=== PATIENT | male | born 1985 | race Caucasian/White ===

== ENCOUNTER 2017-01-19 12:54 | Emergency (ER) | payer BC, OTHER ==
[~2017-01-19] VITALS: Ht 175.3 cm; Wt 63.5 kg
--- NOTE | ~2017-01-19 | CR63 ---
[facility] A Service of [facility] RADIOLOGY TEXT RESULTS PATIENT: SHANNON KEYS LOCATION: SED : 84 UNIT #: [id number] AGE: [address]: USAMA JOSÉ SEX: M ORDER DR: [id number] [place] [address] [id number] E MR#: [id number] Acc #: [id number] NAME: SHANNON KEYS : 1985 SEX: M STUDY DATE/TIME: 01/19/2017 13:50 UNIT: SED ROOM: STUDY DESCRIPTION: CR Chest 2 View Attending Physician: Usama José R.N. Ordering Physician: Usama José R.N. Primary Care Physician: No Primary Care Physician MEDICAL IMAGING REPORT This report is preliminary unless electronic signature is present. EXAM PA and lateral chest. INDICATIONS Cough, cold symptoms for 6 days. COMPARISON 03/21/2016 FINDINGS PA and lateral examination of the chest upright shows a good expansion of the parenchyma with a normal distribution of the pulmonary vascularity. There is no indication of congestion, effusion, infiltrate, tumor, or nodular density. The pleural reflections and diaphragmatic contours are normal. The cardiac silhouette and mediastinal anatomy is within normal limits. IMPRESSION Normal chest. Dictated by... Jose Joel M.D. THIS IS AN ELECTRONICALLY VERIFIED REPORT Jose Joel M.D. at 01/20/2017 9:50 AM MIKE/satinder TD: 01/19/2017 20:52 JOB #: [id number] [facility] A Service of [facility] RADIOLOGY TEXT RESULTS PATIENT: SHANNON KEYS LOCATION: SED : 84 UNIT #: [id number] AGE: [address]: USAMA JOSÉ SEX: M ORDER DR: MEDICAL IMAGING REPORT Page 1 of 1
== END 2017-01-19 16:18 | disposition home or self-care (01) ==
LOC: SED 12:54
DX: J32.0 Chronic maxillary sinusitis (principal); J30.2 Other seasonal allergic rhinitis; F17.210 Nicotine dependence, cigarettes, uncomplicated
CPT/HCPCS: 71020; 94640; 99285

== ENCOUNTER 2017-01-24 08:26 | Inpatient (IN) | payer BC, OTHER ==
[~2017-01-24] VITALS: Ht 175.3 cm; Wt 58.8 kg
--- NOTE | ~2017-01-24 | CR58 ---
[facility] A Service of [facility] & [facility] RADIOLOGY TEXT RESULTS PATIENT: RADHIKA KEYS LOCATION: [facility] 328-01 : [birth year] UNIT #: [id number] AGE: [address]: Jaren Cavanaugh MD SEX: M ORDER DR: [id number] [facility] [address] [facility]. [place], [place] [address] [id number] I MR#: [id number] Acc #: [id number] NAME: RADHIKA KEYS : 1985 SEX: M STUDY DATE/TIME: 01/25/2017 6:59 UNIT: [address] ROOM: [facility] STUDY DESCRIPTION: CR Cervical Spine 2 or 3 Views Attending Physician: Jaren Cavanaugh M.D. Ordering Physician: Physician Non-Staff Primary Care Physician: Primary Care Physician No MEDICAL IMAGING REPORT This report is preliminary unless electronic signature is present EXAM Cervical series 01/25/2017 INDICATIONS Pain and stiffness in the neck for 2 days. No known injury. Unable to move the neck. TECHNIQUE 4 views of the cervical spine were performed. We have no comparison studies FINDINGS Dens and lateral masses intact. No acute fracture or malalignment. Soft tissues unremarkable. Mild degenerative disc disease at C5-6. IMPRESSION 1. Mild degenerative disc disease otherwise negative Dictated by... Jitendra Slade M.D. THIS IS AN ELECTRONICALLY VERIFIED REPORT Jitendra Slade M.D. at 01/25/2017 3:50 PM Liborio TD: 01/25/2017 14:54 JOB #: [id number] MEDICAL IMAGING REPORT Page 1 of 1 COPY
--- NOTE | ~2017-01-24 | HP ---
Unit #: [id number] #: [id number] Patient: RADHIKA KEYS [id number] [address] [place], [place] [address] [id number] I MR#: [id number] NAME: RADHIKA KEYS ROOM: 328 Age: 31 Sex: M Admission Date: 01/24/2017 : 1985 Attending Physician: Farhana Ramirez M.D. Primary Care Physician: No Primary Care Physician HISTORY AND PHYSICAL CHIEF COMPLAINT Headache and neck pain. HISTORY OF PRESENT ILLNESS The patient is a 31-year-old male with a recently diagnosis of the URI last Wednesday, presented to the [facility] complaining of the headache, associated with diarrhea. The patient stated patient went to the bathroom yesterday and was sitting on the commode and started having headache. The patient had a headache workup in the [facility] ER and was found to have a colitis with ascending colitis and dilated upper (1) and brought to the emergency room with sepsis and ascending colitis and probable appendicitis. The patient complains of the pain at the right lower quadrant. It is sharp in nature, 6 out of 10 in severity and nonradiating. The patient states that patient has a steady Augmentin for the last few days and admitted to cover for diarrhea. Denies any fever. Denies any chills. Denies any nausea or vomiting. PAST MEDICAL HISTORY None. PAST SURGICAL HISTORY Denies. ALLERGIES No known drug allergies. HOME MEDICATIONS Patient is on Augmentin. SOCIAL HISTORY Denies smoking, alcohol and illicit drug abuse. FAMILY HISTORY Reviewed and none. REVIEW OF SYMPTOMS Positive for the headache and dizziness. Positive for the diarrhea. Positive for the abdominal pain. PHYSICAL EXAMINATION VITAL SIGNS: His temperature is 97.5, pulse is 105, respiratory rate 16, blood pressure 113/67. At the time of eval the patient was hypotensive, D5/50 received 3 L of the fluid bolus. HEENT: Head atraumatic and normocephalic. Pupils equal, round, reactive Unit #: [id number] #: [id number] Patient: RADHIKA KEYS to light and accommodation. Extraocular movements are intact. NECK: Supple and complained of the pain and the neck movements, associated with the headache. LUNGS: Decreased air entry at the basis. HEART: Regular rate and rhythm, ABDOMEN: Soft, positive bowel sounds, point tenderness of the right lower quadrant. EXTREMITIES: No cyanosis and no clubbing. NEUROLOGIC: Alert, awake and oriented. No gross focal, motor deficits. DIAGNOSTIC STUDIES LABORATORY DATA: Lactic acid 0.9. UA shows leukocyte esterase 2+ blood, 25-50 urine WBC, bacteruria 1+. Urine drug screen is positive for a TCA. WBC 27.9, hematocrit and hemoglobin is 15, hematocrit 44.5, platelets 349, neutrophils 93% and bandemia 29%. Sodium 136, potassium 4.5, chloride 105, bicarb 25, glucose 130, BUN 25, creatinine 1.5, AST 22, ALT 19, alk phos 97, lactic acid is 1.6. IMAGING STUDIES: Chest x-ray shows normal chest. CT of the abdomen and pelvis showed ascending colitis with a prominent appendix, cannot rule out appendicitis. ASSESSMENT 1. Ascending colitis. 2. Sepsis. 3. UTI. PLAN Plan to admit the patient to inpatient telemetry. Continue with IV fluids and p.o. (2) and LSA consulted and seen by Dr. Miramontes at the time of dictation and continued with the IV antibiotics with Zosyn and continued with the pain control and check the stool culture and C. diff, PCI, and pain control. I will repeat the labs again in the morning and further recommendations will follow. Dictated by Venancio Corbin/yvonne TD: 01/25/2017 05:59 JOB #: [id number] HISTORY AND PHYSICAL Page 1 of 1 X FARHANA RAMIREZ MD X HISTORY AND PHYSICAL
--- NOTE | ~2017-01-24 | CO ---
Unit #: [id number] #: [id number] Patient: RADHIKA KEYS [id number] [address] [place], [place] [address] [id number] I MR#: [id number] NAME: RADHIKA KEYS ROOM: 328 Age: 31 Sex: M Admission Date: 01/24/2017 : 1985 Attending Physician: Jaren Cavanaugh M.D. Primary Care Physician: Primary Care Physician No Consultation Date: 01/25/2017 CONSULTATION REPORT ADDITIONAL ATTENDING PHYSICIAN Jaren Cavanaugh M.D. PRIMARY CARE PHYSICIAN Santiago Husain M.D. REASON FOR CONSULTATION Right-sided colitis. HISTORY OF PRESENT ILLNESS Mr. Keys is a 31-year-old white gentleman. The patient works as a employee relations manager in [employer], where he is extremely busy and stressed out because of extreme large amount of work. He lives with 4 children and his , who also works. He apparently presented with history of right lower quadrant abdominal pain and watery nonbloody diarrhea over the past couple of days. Before this about 10 days ago, he was given Augmentin for upper respiratory tract infection. The patient denies any history of hematochezia. He also felt dizzy and lightheaded and was having frequent cough. He also has pain in the neck and feels that it is muscular. PAST MEDICAL HISTORY No significant past medical and also no prior surgical history. The patient has remote history of drug abuse, polysubstance abuse, but he has not used any for the last 4 years. SOCIAL HISTORY He does smoke a pack of cigarette a day and does not drink alcohol or use of any drugs. In the remote past, he has abused drugs in the past. FAMILY HISTORY None of colon, pancreatic cancer, or liver disease. REVIEW OF SYSTEMS Detailed review of organ system does reveal some recent weight loss. No history of fever, chills, or rigors. No headache, seizures, or syncope. There is history of cough with minimal expectoration. No history of hemoptysis. No history of dysuria, hematuria, or pyuria. No history of focal seizures or extremity weakness. PHYSICAL EXAMINATION GENERAL: He is awake, alert, and oriented, and appears comfortable. He does seem to have dry hacking cough during examination. VITAL SIGNS: Stable with a temperature of 97.5, pulse is 91 per minute and regular, respiratory rate is 16, blood pressure is 114/78. He weighs Unit #: [id number] #: [id number] Patient: RADHIKA KEYS 130 pounds and his baseline weight has been about 139 to 140 pounds the past. HEENT: He has mild pallor. There being no icterus, lymphadenopathy, or peripheral edema. CARDIOVASCULAR: Normal heart sounds. No murmurs. LUNGS: Auscultation over the lungs reveals normal breath sounds. Good air entry. ABDOMEN: Soft. There is however localized tenderness over the right lower quadrant of the abdomen. There is no rigidity, rebound, or guarding. Liver and spleen not palpable. Bowel sounds normal. DIAGNOSTIC STUDIES LABORATORY RESULTS: Shows a white count of 27,000 yesterday and 14,000 today; hemoglobin is 11.9; platelet count is normal. Serum chemistry shows normal BUN and creatinine today and was 25 and 1.5 yesterday. His albumin is 4.4. LFTs normal. IMAGING STUDIES: CT scan of the abdomen shows right-sided colitis and thickening of the colon in that area and stool studies are negative for C diff toxin and for Salmonella and for Campylobacter. There are however positive fecal leukocytes and occult blood. CLINICAL IMPRESSION The patient most likely has infectious colitis. Overall, he is feeling much better on empiric treatment. It will be okay to discharge him home on antibiotic combination of Flagyl and Levaquin p.o. for 5 to 6 days. He will however require followup as an outpatient. Thank you very much for asking me to see this pleasant gentleman. I appreciate the consult. Dictated by... Venancio Chapman/ponce TD: 01/25/2017 19:13 JOB #: [id number] CC: Venancio Hoover M.D. Amjad Ali, M.D. CONSULTATION REPORT Page 1 of 1 X Sae Whitaker MD CONSULTATION REPORT
--- NOTE | ~2017-01-24 | CO ---
Unit #: [id number] #: [id number] Patient: RADHIKA KEYS [id number] [address] [place], [place] [address] [id number] I MR#: [id number] NAME: RADHIKA KEYS ROOM: 328 Age: 31 Sex: M Admission Date: 01/24/2017 : 1985 Attending Physician: Jaren Cavanaugh M.D. Primary Care Physician: Primary Care Physician No CONSULTATION REPORT HISTORY OF PRESENT ILLNESS Mr. Keys is a 31-year-old gentleman, who has no chronic medical history, but was started on Augmentin for an upper respiratory infection about 5 to 6 days ago. Over the last 3 to 4 days, he has developed copious watery diarrhea and over the last 24 hours, he developed right-sided abdominal pain and nausea. He denies any vomiting, fever, chills, or hematochezia. Because of the increasing pain and persistent diarrhea, he went to the emergency room at [facility] and there, a CT scan of the abdomen and pelvis revealed thickening and edema of the ascending and transverse colon with an 8 mm appendix that was fluid filled. This was consistent with probable colitis with secondary involvement of the appendix. The patient denies any prior personal history of gastrointestinal disease and he is unaware of a family history of inflammatory bowel disease. His mother is at the bedside. He is unaware of any history of gastrointestinal disease. He has never had any abdominal surgery or any prior episodes. 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 He has had drainage of an abscess of the right upper extremity and he has had right hand surgery. He has had several dental extractions. He has chronic back pain and seasonal allergies. He has had a history of kidney stones. ALLERGIES No allergies to medication. MEDICATIONS His chronic medications include Flexeril and Claritin as needed for allergies. Recently, he has been on Augmentin. FAMILY HISTORY Atherosclerotic coronary artery disease. SOCIAL HISTORY He does smoke cigarettes. He denies use of alcohol or any recreational drugs. He is not , but has 5 children. REVIEW OF SYSTEMS As above plus a productive cough with green sputum and he had a marked diffuse bilateral frontal headache when he went to the emergency room. PHYSICAL EXAMINATION GENERAL: He is awake, alert, oriented, cooperative and pleasant. Unit #: [id number] #: [id number] Patient: RADHIKA KEYS HEENT: No scleral icterus. No carotid bruits. CARDIAC: Regular rhythm without murmur. LUNGS: Clear with a few scattered rhonchi. ABDOMEN: Nondistended and scaphoid. On palpation, he guards throughout the epigastrium and throughout the right abdomen extending into the flank. There is no localized tenderness. EXTREMITIES: No clubbing, cyanosis, or edema. NEUROLOGIC: Grossly intact. No skin rashes or lesions. DIAGNOSTIC STUDIES LABORATORY RESULTS: Comprehensive metabolic panel was within normal limits except for BUN and creatinine of 25 and 1.5. His lactic acid is 0.9. Hemoglobin 15, white count 27,900, 93% segmented neutrophils. Urinalysis; 25 to 50 white cells, nitrite negative. IMAGING STUDIES: CT scan of the head was negative. CT scan of the chest was negative. CT of the abdomen and pelvis as discussed. ASSESSMENT AND PLAN The patient has the radiographic findings consistent with colitis of the ascending and transverse colon with a secondarily dilated appendix. It is quite possible he has develop clostridium difficile colitis from his Augmentin from an upper respiratory infection. At this time, we are going to hydrate the patient, get stool studies and start him on Flagyl in addition to the antibiotics he is already on. We will follow serial exams and labs. I have also asked for a sputum culture since he reports a productive cough. I have discussed this with the patient and family. He does not have history, exam was simple appendicitis with the diffuse inflammation of the colon and appendix. Appendectomy at this time is not warranted and we put him at risk for a stump leak. Dictated by... Venancio Rodriguez/ponce TD: 01/24/2017 19:50 JOB #: [id number] CONSULTATION REPORT Page 1 of 1 X Ever Miramontes MD CONSULTATION REPORT
--- NOTE | ~2017-01-24 | A ---
[facility] Nutrition Therapy DATE: 01/25/17 Patient: RADHIKA KEYS Physician: KWADWO Address: [address] [place] [address] DRIVE Room/Bed: [address] [place] [address], Zip: [place] [address] Admit Date: 01/24/17 Date of : [birth year] Height: 5 9 Weight: 130 59.4 NUTRITIONAL ASSESSMENT: REASON: Low BMI Admitting dx: Pt is a 31 y/o male admitted with dizziness/headache - found to have colitis, sepsis, URI, ?appendicitis PMH: Nothing noted. Anthropometrics: Ht:69" Adm wt:120# UBW:140# BMI:17.7 (admit) 14% loss in ~3 weeks (severe) Labs: Cl-:112 Ca++:8.1 Meds: Zofran, Phenergan, Zosyn, Florastor I/O & Bowel function: BM 01/25, diarrhea noted on 01/24 Skin Integrity: No skin issues noted. Diet: Full liquids Assessment: Chart reviewed, events noted. Pt was seen for a low BMI of 17.7. Regional Flatbed Truck Driver was able to speak to the pt and family at bedside. Pt reports his usual body weight to be ~140#, but that recent illness has caused him to drop ~20# in past 3 weeks (Severe) . He says that his usual appetite is good, but he is apprehensive about eating much now because of his acute stomach pains. Regional Flatbed Truck Driver encouraged the pt to eat small meals throughout the day and to try a supplement for extra kcals and protein. Pt agreed and reported no further questions at this time. RD will follow-up per protocol. Dx: Inadequate protein-energy intake r/t current clinical condition, colitis, appendicitis, URI AEB 20# (14%) weight loss in ~3 weeks (severe). Intervention: See RD recs below Monitoring, Evaluation and Goals: 1. Prevent further weight loss; encourage gradual weight gain towards a healthy BMI. 2. Intake and tolerance of nutrition supplement. 3. Promote regular BM's. Recommendations: 1. Please order Chocolate Ensure shakes TID to supplement poor PO intake and prevent [facility] Nutrition Therapy DATE: 01/25/17 Patient: RADHIKA KEYS Physician: KWADWO Address: [address] [place] [address] Glipho Room/Bed: [address] [place] [address], Zip: [place] [address] Admit Date: 01/24/17 Date of : [birth year] Height: 5 9 Weight: 130 59.4 further weight loss. 2. Once medically feasible, advance diet as tolerated to Regular + 6 small meals to better facilitate po intake 3. Weigh q 3 days for monitoring purposes. RD will follow Moderately compromised Respectfully, Tania Moore, Market Development Trainer Ash Ramsay, MS, RD, LD Food and Nutritional Services [facility] cc: client file
--- NOTE | ~2017-01-24 | CT2 ---
[facility] A Service of [facility] & [facility] RADIOLOGY TEXT RESULTS PATIENT: RADHIKA KEYS LOCATION: A 328-01 : [birth year] UNIT #: [id number] AGE: [address]: Jaren Cavanaugh MD SEX: M ORDER DR: [id number] [address] [address] [id number] I MR#: [id number] #: [id number] NAME: RADHIKA KEYS : 1985 SEX: M STUDY DATE/TIME: 01/24/2017 10:48 UNIT: SEDOF ROOM: [facility] STUDY DESCRIPTION: CT Abd and Pelv W Cont Attending Physician: Pina Ramierz M.D. Ordering Physician: Jose Funez M.D. Primary Care Physician: Primary Care Physician No MEDICAL IMAGING REPORT This report is preliminary unless electronic signature is present. EXAM CT of the abdomen and pelvis INDICATION Nausea, right lower quadrant pain starting today. The patient's CT of the chest will be dictated separately. TECHNIQUE Axial CT images were obtained from the dome of the diaphragm through the symphysis pubis following administration of oral and intravenous contrast material. This CT exam was performed with one or more of the following radiation dose reduction techniques: automatic exposure control, adjustment of mA and/or kV according to patient size, and iterative reconstruction. FINDINGS Stomach and proximal small bowel are within normal limits as are the spleen, adrenal glands, pancreas, liver and gallbladder. Kidneys appear unremarkable. Urinary bladder is unremarkable. Patient has some dystrophic calcifications within the prostate gland. There is no evidence of mechanical bowel obstruction. The appendix appears mildly prominent and is fluid-filled but I think this is actually more secondary to some reactive inflammation from the colon rather than acute appendicitis. There is no evidence mechanical bowel obstruction. I do think that the patient's ascending colon and probably transverse colon and thick-walled and there is probably some wall edema involving the ascending colon. Urinary bladder appears unremarkable. There is some free fluid seen within the pelvis, likely reactive. No pneumatosis or free air is seen and there is no evidence of obstruction. [facility] A Service of [facility] & [facility] RADIOLOGY TEXT RESULTS PATIENT: RADHIKA KEYS LOCATION: [facility] 328-01 : [birth year] UNIT #: [id number] AGE: [address]: Jaren Cavanaugh MD SEX: M ORDER DR: Review of bony windows does not demonstrate any aggressive osseous abnormalities. IMPRESSION 1. The patient's ascending colon I think does appear somewhat thick-walled, with perhaps some mild edema. There is probably also some extension into the transverse colon as well. This could reflect colitis, however the patient's appendix is prominent in size measuring up to about 8 mm and it is fluid-filled. The possibility that this is acute appendicitis is not completely excluded, although I would favor colitis with secondary involvement of the appendix. 2. Small amount of free fluid within the pelvis, likely reactive. 3. Patient's CT of the chest will be dictated separately. Dictated by... Shey Connelly M.D. THIS IS AN ELECTRONICALLY VERIFIED REPORT Shey Connelly M.D. at 01/25/2017 5:04 PM CLAIRE/raisa TD: 01/25/2017 11:09 JOB #: [id number] MEDICAL IMAGING REPORT Page 1 of 1
--- NOTE | ~2017-01-24 | DS ---
Unit #: [id number] #: [id number] Patient: RADHIKA KEYS [id number] [place], [place] [address] [id number] I MR#: [id number] NAME: RADHIKA KEYS ROOM: 328 Age: 31 Sex: M Admission Date: 01/24/2017 : 1985 Discharge Date: 01/26/2017 Attending Physician: Jaren Cavanaugh M.D. Primary Care Physician: Primary Care Physician No DISCHARGE SUMMARY REASON FOR ADMISSION Colitis noted at outside facility. HISTORY OF PRESENT ILLNESS/HOSPITAL COURSE The patient is a very pleasant 31-year-old male with a prior history of substance abuse, sober for greater than 3 years, who presented to outside facility with headache, diffuse body aches, as well as profuse diarrhea. Apparently, he had been seen as an outpatient, recently started on Augmentin, began developing abdominal pain as well as profound diarrhea. He presented to [facility] ER with similar symptoms. He underwent a CT of abdomen and pelvis, which showed ascending colitis and subsequent decision was made for the patient to be transferred to [facility] for further evaluation. Initially secondary to concerns for possible underlying acute appendicitis, which was limit on the aforementioned CT scan, we placed consultation to [facility]. Dr. Miramontes and associates saw and evaluated the patient, his white count was elevated at 27.9. On day of admission, he was placed on IV antibiotics. Ultimately, his white count did trend to normal this morning, it is currently 9.2. He has been tolerating diet well without difficulty. Conservative management was done. No further procedures were done while the patient was here. [facility] felt as though as appendicitis was less likely. He underwent routine laboratory studies include blood cultures, which were negative for acute bacterial growth. His stool studies for Salmonella as well as Clostridium difficile, both came back negative. It is noted that he was Hemoccult positive as well as WBC smear was also positive; however, the patient's hemoglobin today at the time of discharge is stable at 11.9, similar to his admission hemoglobin. At this point in time, secondary to colitis, which was seen on the CT abdomen and pelvis. He will be given a prescription for Cipro 500 mg p.o. b.i.d. x7 days as well as Flagyl for additional 7 days. No other medications will be prescribed. He has stated he does not wish to have any narcotic medications. He has been advised no dairy products for the next week as well as to try a light soft diet for 7 days. He is also to follow up with his primary care physician within 7 days post discharge. FINAL DISCHARGE DIAGNOSES 1. Ascending colitis. 2. Nausea, now resolved. 3. Recent diagnosis of viral URI, now resolving. 4. Prior history of substance abuse, now sober x3 years. Unit #: [id number] #: [id number] Patient: RADHIKA KEYS DISCHARGE MEDICATIONS Cipro 500 mg p.o. b.i.d. x7 days, Flagyl 500 mg p.o. q.8 x7 days. DISCHARGE CONDITION Stable. DISCHARGE DISPOSITION Home. Dictated by... Venancio Hoover/ponce TD: 01/28/2017 16:15 JOB #: [id number] DISCHARGE SUMMARY Page 1 of 1 X Jaren Cavanaugh MD X DISCHARGE SUMMARY
--- NOTE | ~2017-01-24 | CT71 ---
[facility] A Service of [facility] RADIOLOGY TEXT RESULTS PATIENT: RADHIKA KEYS LOCATION: [facility] 328 : 84 UNIT #: [id number] AGE: [address]: Jaren Cavanaugh MD SEX: M ORDER DR: [id number] [place] [id number] MR#: [id number] Acc #: [id number] NAME: RADHIKA KEYS : 1985 SEX: M STUDY DATE/TIME: 01/24/2017 10:44 UNIT: SEDOF ROOM: [facility] STUDY DESCRIPTION: CT Head Wo Contrast Attending Physician: Pina Ramirez M.D. Ordering Physician: Jose Funez M.D. Primary Care Physician: No Primary Care Physician MEDICAL IMAGING REPORT This report is preliminary unless electronic signature is present. EXAM CT head. INDICATIONS Headache and dizziness for [address] head without contrast. Axial noncontrast images were obtained from the skull base to the vertex. This CT exam was performed with one or more of the following radiation dose reduction techniques: automatic exposure control, adjustment of mA and/or kV according to patient size, and iterative reconstruction. COMPARISON None available. FINDINGS Ventricular size and configuration are normal. There is no evidence of acute infarct or hemorrhage. There are no extraaxial fluid collections. No mass lesion or mass effect is seen. There are no skull fractures. There is mild mucosal thickening of the paranasal sinuses. IMPRESSION Normal noncontrast head CT. Dictated by... Augustine Glover M.D. THIS IS AN ELECTRONICALLY VERIFIED REPORT Augustine Glover M.D. at 01/25/2017 11:48 AM [facility] A Service [facility] RADIOLOGY TEXT RESULTS PATIENT: RADHIKA KEYS LOCATION: [facility] 328- : 84 UNIT #: [id number] AGE: [address]: Jaren Cavanaugh MD SEX: M ORDER DR: Anamaria TD: 01/25/2017 11:04 JOB #: [id number] MEDICAL IMAGING REPORT Page 1 of 1
--- NOTE | ~2017-01-24 | CT55 ---
[facility] A Service of [facility] RADIOLOGY TEXT RESULTS PATIENT: RADHIKA KEYS LOCATION: [facility] 328-01 : 84 UNIT #: [id number] AGE: [address]: Jaren Cavanaugh MD SEX: M ORDER DR: [id number] [place] [id number] MR#: [id number] Acc #: [id number] NAME: RADHIKA KEYS : 1985 SEX: M STUDY DATE/TIME: 01/24/2017 10:48 UNIT: SEDOF ROOM: [facility] STUDY DESCRIPTION: CT Chest W Con Attending Physician: Pina Ramirez M.D. Ordering Physician: Jose Funez M.D. Primary Care Physician: No Primary Care Physician MEDICAL IMAGING REPORT This report is preliminary unless electronic signature is present. EXAM CT chest with contrast. INDICATIONS Cough and congestion for [address] images were obtained from the thoracic inlet through the dome of the diaphragm following administration of the contrast material. This CT exam was performed with one or more of the following radiation dose reduction techniques: automatic exposure control, adjustment of mA and/or kV according to patient size, and iterative reconstruction. Patient's CT of the abdomen be dictated separately. FINDINGS No pulmonary nodules or masses are seen. No infiltrates are identified. The thyroid gland, trachea and esophagus appear unremarkable. There is no pleural or pericardial effusion. Mediastinal lymph nodes do not appear pathologically enlarged. Thoracic aorta measures within normal size limits and there is no evidence of dissection. Review of bony windows does not demonstrate any aggressive osseous abnormalities. IMPRESSION No acute intrathoracic process is seen. Please see the patient's separately dictated report for findings within the abdomen and pelvis. Dictated by... Shey Connelly M.D. [facility] A Service [facility] RADIOLOGY TEXT RESULTS PATIENT: RADHIKA KEYS LOCATION: [facility] 328-01 : 84 UNIT #: [id number] AGE: [address]: Jaren Cavanaugh MD SEX: M ORDER DR: THIS IS AN ELECTRONICALLY VERIFIED REPORT Shey Connelly M.D. at 01/25/2017 5:04 PM AFF/gz TD: 01/25/2017 11:01 JOB #: [id number] MEDICAL IMAGING REPORT Page 1 of 1
[2017-01-24] MEDS ORDERED: FLEXERIL10 MG (08:38)
[2017-01-24] MEDS ORDERED: AUGMENTIN (08:38)
[2017-01-24 09:26] LABS: BASOPHIL% 0.1 % (0-2.5); HEMATOCRIT 44.5 % (38.0-50.0); LYMPHOCYTE# 0.6 X10e3 (1.0-3.5); MEAN CELL VOLUME 88.5 FL (83-96); MEAN CORPUSCULAR HEMOGLOBIN 29.9 PG (28-34); MEAN CORPUSCULAR HGB CONC 33.8 g/dL (30-36); MEAN PLATELET VOLUME 7.4 FL (6.5-11.5); MONOCYTE# 1.4 X10e3 (0-1.0); MONOCYTE% 4.9 % (3.0-12.0); PLATELET COUNT 349 X10e3 (140-420); RED BLOOD COUNT 5.03 X10e (3.90-5.60); RED CELL DISTRIBUTION WIDTH 14.6 % (11.0-15.5); WHITE BLOOD COUNT 27.9 X10e3 (4.0-10.5)
[2017-01-24 09:29] LABS: DIFF IND YES
[2017-01-24 09:44] LABS: ALBUMIN SERUM 4.4 g/dL (3.5-5.0); BILIRUBIN, DIRECT 0.1 mg/dL (0.0-0.2); BILIRUBIN,INDIRECT 0.5 mg/dL (0.0-0.9); BILIRUBIN,TOTAL 0.6 mg/dL (0.2-2.0); BUN/CREATININE RATIO 16.66; CALCIUM SERUM 8.8 mg/dL (8.4-10.2); CREATININE SERUM 1.5 mg/dL (0.6-1.4); GLOM FILT RATE Estimated 60.8 mL/min (>60); POTASSIUM 4.5 mmol/L (3.5-5.1); PROTEIN TOTAL SERUM 7.5 g/dL (6.0-8.3)
[2017-01-24 09:52] LABS: PLATELET ESTIMATE NORMAL (NORMAL); RBC NORMAL YES
[2017-01-24 11:16] LABS: URINE SOURCE CLEAN CATCH
[2017-01-24 11:19] LABS: URINE APPEARANCE CLEAR; URINE BILIRUBIN NEG (NEG); URINE BLOOD 2+ (NEG); URINE COLOR YELLOW; URINE GLUCOSE NEG (NORM); URINE KETONE NEG (NEG); URINE LEUKOCYTE ESTERASE TRACE (NEG); URINE NITRATE NEG (NEG); URINE PROTEIN NEG (NEG); URINE UROBILINOGEN 0.2 MG/DL (NORM)
[2017-01-24 11:29] LABS: AMPHETAMINE NEG (NEG); BARBITURATES NEG (NEG); BENZODIAZEPINES NEG (NEG); COCAINE NEG (NEG); MARIJUANA NEG (NEG); OPIATES NEG (NEG); TRICYCLIC ANTIDEPRESSANTS POS (NEG); U METHADONE NEG (NEG)
[2017-01-24 11:31] LABS: MICRO INDICATED? YES
[2017-01-24 11:34] LABS: CULTURE INDICATED? YES; URINE BACTERIA 1+ (NEG); URINE SQUAMOUS EPITHELIAL CELL FEW /[HPF]; URINE WBC 25-50 /[HPF] (0-5)
[2017-01-24] MEDS ORDERED: FLEXERIL10 MG PO (15:34)
[2017-01-25 07:25] LABS: BASOPHIL# 0.1 X10e3 (0-0.3); BASOPHIL% 0.4 % (0-2.5); EOSINOPHIL# 0.9 X10e3 (0-0.7); EOSINOPHIL% 6.1 % (0.0-7.0); HEMATOCRIT 35.2 % (38.0-50.0); LYMPHOCYTE# 1.1 X10e3 (1.0-3.5); LYMPHOCYTE% 7.4 % (17.0-45.0); MEAN CORPUSCULAR HEMOGLOBIN 29.8 PG (28-34); MEAN CORPUSCULAR HGB CONC 33.9 g/dL (30-36); MEAN PLATELET VOLUME 7.3 FL (6.5-11.5); MONOCYTE# 0.9 X10e3 (0-1.0); MONOCYTE% 6.2 % (3.0-12.0); NEUTROPHIL# 11.5 X10e3 (1.5-7.1); NEUTROPHIL% 79.9 % (40-75); PLATELET COUNT 268 X10e3 (140-420); RED BLOOD COUNT 4.01 X10e (3.90-5.60); RED CELL DISTRIBUTION WIDTH 14.6 % (11.0-15.5); WHITE BLOOD COUNT 14.4 X10e3 (4.0-10.5)
[2017-01-25 07:36] LABS: HEMOGLOBIN 11.9 gm/dL (13.0-16.0)
[2017-01-25 07:37] LABS: DIFF IND NO
[2017-01-25 07:55] LABS: BUN/CREATININE RATIO 17.27; CALCIUM SERUM 8.1 mg/dL (8.4-10.2); CREATININE SERUM 1.1 mg/dL (0.6-1.4); GLOM FILT RATE Estimated 88.4 mL/min (>60); MAGNESIUM 1.9 mg/dL (1.6-3.0); PHOSPHOROUS 2.6 mg/dL (2.5-4.6); POTASSIUM 4.2 mmol/L (3.5-5.1)
[2017-01-26 05:04] LABS: HEMATOCRIT 34.7 % (38.0-50.0); HEMOGLOBIN 11.9 gm/dL (13.0-16.0); MEAN CELL VOLUME 86.8 FL (83-96); MEAN CORPUSCULAR HEMOGLOBIN 29.9 PG (28-34); MEAN CORPUSCULAR HGB CONC 34.4 g/dL (30-36); MEAN PLATELET VOLUME 7.3 FL (6.5-11.5); RED CELL DISTRIBUTION WIDTH 14.7 % (11.0-15.5); WHITE BLOOD COUNT 9.2 X10e3 (4.0-10.5)
[2017-01-26 05:44] LABS: CALCIUM SERUM 8.4 mg/dL (8.4-10.2); GLOM FILT RATE Estimated 99.2 mL/min (>60); POTASSIUM 4.4 mmol/L (3.5-5.1)
[2017-01-26] MEDS ORDERED: CIPRO PO (15:05)
[2017-01-26] MEDS ORDERED: CIPRO (15:05)
[2017-01-26] MEDS ORDERED: FLAGYL PO (15:06)
== END 2017-01-26 15:59 | disposition home or self-care (01) | DRG 872 ==
LOC: SED 08:26 → SEDOF 13:01 → SED 13:01 → C3A PCU 13:01 → SEDOF 15:08 → C3A PCU 15:08 → SEDOF 19:10 → C3A PCU 01-25 07:46 → UNDODEPER 01-26 14:00 → C3A PCU 01-26 15:59
PROVIDERS: Emergency Medicine; Family Medicine; Internal Medicine; Surgery
DX: A41.9 Sepsis, unspecified organism (principal); N17.9 Acute kidney failure, unspecified; N39.0 Urinary tract infection, site not specified; A09 Infectious gastroenteritis and colitis, unspecified; Z68.1 Body mass index [BMI] 19.9 or less, adult; F17.210 Nicotine dependence, cigarettes, uncomplicated; R63.6 Underweight; Z82.49 Family history of ischemic heart disease and other diseases of the circulatory system
CPT/HCPCS: 36415; 70450; 71260; 72040; 74177; 80048; 80076; 80307; 81003; 82274; 83605; 83630; 83735; 84100; 85025; 85027; 87040; 87045; 87070; 87086; 87177; 87205; 87209; 87427; 87493; 87899; 94760; 96374; 96375; 96376; 99285; C9113; J1650; J1885; J2270; J2405; J2543; J3370; Q9967